=== PATIENT | female | born 1990 | race Caucasian/White ===

== ENCOUNTER 2023-04-30 17:44 | Emergency (ER) | payer MEDICAID ==
[2023-04-30 18:15] VITALS: BP 118/89; PULSE 82
== END 2023-04-30 18:37 | disposition home or self-care (01) ==
LOC: MW.ED 17:44
DX: B34.9 Viral infection, unspecified (principal); F17.210 Nicotine dependence, cigarettes, uncomplicated; Z88.8 Allergy status to other drugs, medicaments and biological substances
CPT/HCPCS: 99283

== ENCOUNTER 2025-03-10 17:08 | Emergency (ER) | payer BC ==
[2025-03-10 17:24] VITALS: BP 119/69; PULSE 74
[2025-03-10] MEDS: Sodium Chloride 0.9% 1,000 ML IV ONE (17:38)
== END 2025-03-10 18:14 | disposition home or self-care (01) ==
LOC: MW.ED 17:08
DX: N92.0 Excessive and frequent menstruation with regular cycle (principal); Z88.8 Allergy status to other drugs, medicaments and biological substances; Z79.899 Other long term (current) drug therapy
CPT/HCPCS: 81025; 99283; 99284